=== PATIENT | male | born 1945 | race Hispanic/Latino ===

== ENCOUNTER 2024-11-05 13:32 | Emergency (ER) | payer MEDICARE, OTHER ==
[2024-11-05] MEDS ORDERED: Oxymetazoline HCl 0.05% (30 ML BOT) ONE (14:03)
== END 2024-11-05 14:20 | disposition home or self-care (01) ==
LOC: ERS 13:32
DX: R04.0 Epistaxis (principal); I12.9 Hypertensive chronic kidney disease with stage 1 through stage 4 chronic kidney disease, or unspecified chronic kidney disease; N18.9 Chronic kidney disease, unspecified; E11.22 Type 2 diabetes mellitus with diabetic chronic kidney disease; Z99.2 Dependence on renal dialysis
CPT/HCPCS: 99282